=== PATIENT | female | born 1975 | race Caucasian/White ===

== ENCOUNTER → 2018-08-05 | Outpatient (CLI) | payer OTHER ==
--- NOTE | 2018-08-06 07:33 | MM ---
Reason for exam: screening (asymptomatic). Last mammogram was performed 2 years ago. History: Patient has history of other cancer at age 40. Family history of breast cancer in mother at age 65 and breast cancer in maternal sister at age 48. Physical Findings: A clinical breast exam by your physician is recommended on an annual basis and results should be correlated with mammographic findings. MG 3D Screening Mammo W/Cad Bilateral CC and MLO view(s) were taken. Prior study comparison: July 31, 2016, bilateral MG 3d screening mammo w/cad. July 29, 2015, bilateral MG 3d screening mammo w/cad. The breast tissue is heterogeneously dense. This may lower the sensitivity of mammography. No significant changes when compared with prior studies. ASSESSMENT: Benign, BI-RAD 2 RECOMMENDATION: Routine screening mammogram of both breasts in 1 year.
== END | disposition home or self-care (01) ==
LOC: RADMAMWWP 07:04
PROVIDERS: ATTEND Family Medicine
DX: Z12.31 Encounter for screening mammogram for malignant neoplasm of breast (principal)
CPT/HCPCS: 77063; 77067

== ENCOUNTER → 2018-10-31 | Outpatient (CLI) | payer OTHER ==
--- NOTE | 2018-10-31 14:57 | XR ---
EXAMINATION TYPE: XR mastoid complete DATE OF EXAM: 10/31/2018 COMPARISON: NONE HISTORY: Pain TECHNIQUE: 4 views submitted FINDINGS: Osseous structures intact. There is symmetric appearance of the mastoid air cells. IMPRESSION: No plain film x-ray abnormality. Consider follow-up CT scan or MRI given patient's histor y.
== END | disposition home or self-care (01) ==
LOC: RADXRMAIN 14:18
PROVIDERS: ATTEND Family Medicine
DX: R22.0 Localized swelling, mass and lump, head (principal)
CPT/HCPCS: 70130

== ENCOUNTER → 2019-01-01 | Outpatient (CLI) | payer OTHER ==
--- NOTE | 2019-01-01 08:04 | CT ---
EXAMINATION TYPE: CT sinus wo con DATE OF EXAM: 01/01/2019 COMPARISON: None HISTORY: symptoms of chronic sinusitis CT DLP: 618.[address] of the paranasal sinuses was performed in the axial and coronal planes. Bone and soft tissue settings are submitted. Mucous retention cyst right maxillary sinus. Paranasal sinuses are otherwise well aerated. No air-flu id level seen. The osteal meatal units are patent bilaterally. The nasal septum is midline. No bony destructive changes are seen within the field of view. IMPRESSION: Mucous retention cyst right maxillary sinus.
--- NOTE | 2019-01-01 08:12 | CT ---
EXAMINATION TYPE: CT iac wo con DATE OF EXAM: 01/01/2019 COMPARISON: None HISTORY: Right ear/mastoid pain CT DLP: 142.7mGycm Automated exposure control for dose reduction was used. FINDINGS: The external auditory canals are patent bilaterally. Mastoid air cells show no evidence of abnormal opacification bilaterally. The middle ear ossicles are symmetric and unremarkable. There is no evidence of suspicious surrounding soft tissue density to suggest cholesteatoma. The scutum is preserved bilaterally. The cochlea and the semicircular canals are symmetric and unremarkable. Ves tibular aqueduct and internal carotid canal appear unremarkable. Temporomandibular joints are mainta ined bilaterally. Mucous retention cyst right maxillary sinus. IMPRESSION: No significant abnormality seen to account for patient's symptoms.
== END ==
LOC: RADCTMAIN 07:27
PROVIDERS: ATTEND Otolaryngology
DX: J32.9 Chronic sinusitis, unspecified (principal); H92.09 Otalgia, unspecified ear; G50.1 Atypical facial pain; J34.1 Cyst and mucocele of nose and nasal sinus
CPT/HCPCS: 70480; 70486

== ENCOUNTER → 2019-01-18 | Outpatient (CLI) | payer OTHER ==
[2019-01-18 11:21] LABS: Potassium 3.9 mmol/L (3.5-5.1)
== END ==
LOC: LABPAT 10:11
PROVIDERS: ATTEND Otolaryngology
DX: Z01.818 Encounter for other preprocedural examination (principal); E11.9 Type 2 diabetes mellitus without complications
CPT/HCPCS: 36415; 82947; 84132; 84295; 93005

== ENCOUNTER → 2019-09-27 | Outpatient (CLI) | payer OTHER ==
--- NOTE | 2019-09-29 14:31 | MM ---
Reason for exam: screening (asymptomatic). Last mammogram was performed 1 year and 2 months ago. History: Patient has history of other cancer at age 40. Family history of breast cancer in mother at age 65 and breast cancer in maternal sister at age 48. Took progesterone for 1 month. Physical Findings: A clinical breast exam by your physician is recommended on an annual basis and results should be correlated with mammographic findings. MG 3D Screening Mammo W/Cad Bilateral CC and MLO view(s) were taken. Prior study comparison: August 05, 2018, bilateral MG 3d screening mammo w/cad. July 31, 2016, bilateral MG 3d screening mammo w/cad. There are scattered fibroglandular densities. There is no discrete abnormality. No significant changes when compared with prior studies. ASSESSMENT: Negative, BI-RAD 1 RECOMMENDATION: Routine screening mammogram of both breasts in 1 year.
== END | disposition home or self-care (01) ==
LOC: RADMAMWWP 09:41
PROVIDERS: ATTEND Family Medicine
DX: Z12.31 Encounter for screening mammogram for malignant neoplasm of breast (principal)
CPT/HCPCS: 77063; 77067

== ENCOUNTER → 2021-04-15 | Outpatient (CLI) | payer OTHER ==
--- NOTE | 2021-04-18 10:58 | MM ---
Reason for exam: screening (asymptomatic). Last mammogram was performed 1 year and 7 months ago. History: Patient has history of other cancer at age 40. Family history of breast cancer in mother at age 65 and breast cancer in maternal sister at age 48. Took hormonal contraceptives for 10 years. Took progesterone for 1 month. Physical Findings: A clinical breast exam by your physician is recommended on an annual basis and results should be correlated with mammographic findings. MG 3D Screening Mammo W/Cad Bilateral CC and MLO view(s) were taken. Prior study comparison: September 27, 2019, bilateral MG 3d screening mammo w/cad. August 05, 2018, bilateral MG 3d screening mammo w/cad. The breast tissue is heterogeneously dense. This may lower the sensitivity of mammography. There is no discrete abnormality. No significant changes when compared with prior studies. ASSESSMENT: Negative, BI-RAD 1 RECOMMENDATION: Routine screening mammogram of both breasts in 1 year.
== END | disposition home or self-care (01) ==
LOC: RADMAMWWP 07:23
PROVIDERS: ATTEND Family Medicine
DX: Z12.31 Encounter for screening mammogram for malignant neoplasm of breast (principal); Z80.3 Family history of malignant neoplasm of breast
CPT/HCPCS: 77063; 77067

== ENCOUNTER → 2022-03-09 | Outpatient (CLI) | payer OTHER ==
[2022-03-09 14:58] LABS: ALT 95 U/L (8-44); AST 49 U/L (13-35); African American GFR (CKD) 120.5 (60.0-200.0); Albumin 4.4 g/dL (3.8-4.9); Albumin/Globulin Ratio 2.15 (1.60-3.17); Alkaline Phosphatase 93 U/L (41-126); BUN/Creat Ratio 14.18 Ratio (12.00-20.00); Blood Urea Nitrogen 9.7 mg/dL (9.0-27.0); Carbon Dioxide 26.5 mmol/L (20.0-27.5); Chloride 104 mmol/L (96-109); Chol/HDL Ratio 5.54 Ratio; Glucose 128 mg/dL (70-110); LDL Cholesterol,Calculated 97.3 mg/dL (0.0-131.0); Potassium 4.1 mmol/L (3.5-5.5); Sodium 141 mmol/L (135-145); Total Protein 6.4 g/dL (6.2-8.2)
== END | disposition home or self-care (01) ==
LOC: LABWHC1 07:35
PROVIDERS: ATTEND Family Medicine
DX: Z13.220 Encounter for screening for lipoid disorders (principal); E11.9 Type 2 diabetes mellitus without complications; E66.01 Morbid (severe) obesity due to excess calories
CPT/HCPCS: 36415; 80053; 80061; 83036

== ENCOUNTER → 2022-07-05 | Outpatient (CLI) | payer OTHER ==
--- NOTE | 2022-07-06 08:38 | MM ---
Reason for Exam: Screening (asymptomatic). Last mammogram was performed 1 year(s) and 3 month(s) ago. Patient History: Menarche at age 13. Patient has no children. Postmenopausal. Other cancer, age 40. Progesterone for 1 month. Patient used Hormonal Contraceptives for 10 years. Sister had breast cancer, age 48. Mother had breast cancer, age 65. Risk Values: Yessenia 5 year model risk: 2.9%. NCI Lifetime model risk: 26.3%. Prior Study Comparison: 08/05/2018 Bilateral Screening Mammogram, [facility]. 09/27/2019 Bilateral Screening Mammogram, [facility]. 04/15/2021 Bilateral Screening Mammogram, [facility]. Tissue Density: The breast tissue is heterogeneously dense. This may lower the sensitivity of mammography. Findings: Analyzed By CAD. There is no suspicious group of microcalcifications or new suspicious mass in either breast. No significant change from prior exams. Overall Assessment: Negative, BI-RAD 1 Management: Screening Mammogram of both breasts in 1 year. A clinical breast exam by your physician is recommended on an annual basis and results should be correlated with mammographic findings. Electronically signed and approved by: Joshua Skaggs D.O.
== END | disposition home or self-care (01) ==
LOC: RADMAMWWP 07:24
PROVIDERS: ATTEND Family Medicine
DX: Z12.31 Encounter for screening mammogram for malignant neoplasm of breast (principal); Z78.0 Asymptomatic menopausal state; Z80.3 Family history of malignant neoplasm of breast
CPT/HCPCS: 77063; 77067

== ENCOUNTER → 2023-06-05 | Outpatient (CLI) | payer OTHER ==
--- NOTE | 2023-06-05 09:46 | US ---
EXAMINATION TYPE: US abdomen limited DATE OF EXAM: 06/05/2023 COMPARISON: NONE CLINICAL INDICATION: Female, 48 years old with history of R74.01 ELEVATION OF LEVELS OF LIVER TRANSAM INASE L; Abnormal labs. GB removed. TECHNIQUE: Multiple sonographic images of the right upper quadrant are obtained. FINDINGS: EXAM MEASUREMENTS: Liver Length: 21.3 cm CBD: 0.6 cm Right Kidney: 10.1 x 5.4 x 4.6 cm Pancreas: Limited visualization of head and tail due to overlying bowel gas Liver: Enlarged in size. Echogenic in appearance. Coarse. Gallbladder: Surgically absent CBD: wnl Right Kidney: Medial hypoechoic area at hilum = 1.9 x 1.1 cm. Limited visualization of pancreas due to overlying bowel gas. Liver is enlarged with coarsened echoge kacy appearance. No focal lesion identified within these limitations. Gallbladder surgically absent. C ommon bile duct is within normal limits. Right kidney demonstrates no evidence of nephrolithiasis, hy dronephrosis or solid mass. There is a hypoechoic area within the hilum favored to represent a renal pelvis. IMPRESSION: 1. No acute process. 2. Hepatomegaly with fatty infiltration. No focal lesion identified. 3. Postcholecystectomy changes. 4. Hypoechoic area within the right renal hilum favored to represent a renal pelvis. Follow-up renal ultrasound in 6 months is recommended.
== END | disposition home or self-care (01) ==
LOC: RADUSWWP 08:13
PROVIDERS: ATTEND Family Medicine
DX: K76.0 Fatty (change of) liver, not elsewhere classified (principal); R16.0 Hepatomegaly, not elsewhere classified; R74.01 Elevation of levels of liver transaminase levels; Z90.49 Acquired absence of other specified parts of digestive tract
CPT/HCPCS: 76705

== ENCOUNTER → 2023-11-30 | Outpatient (CLI) | payer OTHER | END | disposition home or self-care (01) | LOC: RADUSWWP 06:52 | PROVIDERS: ATTEND Family Medicine | DX: Z53.9 Procedure and treatment not carried out, unspecified reason (principal) ==

== ENCOUNTER → 2023-11-30 | Outpatient (CLI) | payer OTHER ==
--- NOTE | 2023-11-30 07:49 | US ---
EXAMINATION TYPE: US kidneys/renal and bladder DATE OF EXAM: 11/30/2023 COMPARISON: NONE CLINICAL INDICATION: Female, 48 years old with history of R93.429 ABN FINDINGS E11.9 TYPE 2 DIABETES; abnormal finding on prior US, 6 month F/U EXAM MEASUREMENTS: Right Kidney: 11.8x4.8x6.6 cm Left Kidney: 11.9x4.6x5.0 cm Right Kidney: 2.3x2.5x2.0cm area seen on prior believed to be extrarenal pelvis Left Kidney: No hydronephrosis or masses seen Bladder: wnl Bilateral Jets seen: Yes There is no evidence for hydronephrosis at this point in time. No nephrolithiasis is seen. No keon s are identified. The urinary bladder is anechoic. Bilateral ureteral jets are seen. thickened endometrium measures 1.6cm IMPRESSION: 1. 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 2. Thickened endometrium. Correlate with the patient's menstrual cycle.
--- NOTE | 2023-12-03 11:57 | MM ---
Reason for Exam: Screening (asymptomatic). Last mammogram was performed 1 year(s) and 5 month(s) ago. Patient History: Menarche at age 13. Patient has no children. Postmenopausal. Other cancer, age 40. Progesterone for 1 month. Patient used Hormonal Contraceptives for 10 years. Sister had breast cancer, age 48. Mother had breast cancer, age 65. Risk Values: Yessenia 5 year model risk: 3.0%. NCI Lifetime model risk: 26.0%. Prior Study Comparison: 09/27/2019 Bilateral Screening Mammogram, [facility]. 04/15/2021 Bilateral Screening Mammogram, [facility]. 07/05/2022 Bilateral MG 3D screening mammo w/cad, [facility]. Tissue Density: There are scattered areas of fibroglandular density. Findings: Analyzed By CAD. There is no suspicious group of microcalcifications or new suspicious mass in either breast. Asymmetric density upper outer right breast at approximately 10-11 o'clock 5 cm from the nipple. Additional views are recommended. Suspicious calcifications without either breast. Left breast is unremarkable. Overall Assessment: Incomplete: need additional imaging evaluation, BI-RAD 0 Management: Diagnostic Mammogram of the right breast. . Patient should continue monthly self-breast exams. A clinical breast exam by your physician is recommended on an annual basis. This exam should not preclude additional follow-up of suspicious palpable abnormalities. Note on Yessenia scores and lifetime risk: 1. A Yessenia score greater than 3% is considered moderate risk. If this is the case, consider specialist referral to assess eligibility for a risk reducing agent. 2. If overall lifetime risk for the development of breast cancer is 20% or higher, the patient may qualify for future screening with alternating mammogram and breast MRI. Electronically signed and approved by: Chuckie Maloney M.D. Radiologis
== END | disposition home or self-care (01) ==
LOC: RADMAMWWP 06:55
PROVIDERS: ATTEND Family Medicine
DX: Z12.31 Encounter for screening mammogram for malignant neoplasm of breast (principal); R93.89 Abnormal findings on diagnostic imaging of other specified body structures; E11.9 Type 2 diabetes mellitus without complications; Z78.0 Asymptomatic menopausal state; Z80.3 Family history of malignant neoplasm of breast
CPT/HCPCS: 76770; 77063; 77067

== ENCOUNTER → 2023-12-07 | Outpatient (CLI) | payer OTHER ==
--- NOTE | 2023-12-07 10:21 | MM ---
Reason for Exam: Additional evaluation requested from abnormal screening. Last screening mammogram was performed less than 1 month ago. Patient History: Menarche at age 13. Patient has no children. Postmenopausal. Other cancer, age 40. Progesterone for 1 month. Patient used Hormonal Contraceptives for 10 years. Sister had breast cancer, age 48. Mother had breast cancer, age 65. Risk Values: Yessenia 5 year model risk: 2.1%. NCI Lifetime model risk: 19.1%. Prior Study Comparison: 07/31/2016 Bilateral Screening Mammogram, [facility]. 08/05/2018 Bilateral Screening Mammogram, [facility]. 09/27/2019 Bilateral Screening Mammogram, [facility]. 04/15/2021 Bilateral Screening Mammogram, [facility]. 07/05/2022 Bilateral MG 3D screening mammo w/cad, [facility]. 11/30/2023 Bilateral MG 3D screening mammo w/cad, [facility]. Tissue Density: Right: The breasts are heterogeneously dense, which may obscure small masses. Findings: Analyzed By CAD. No persistent mass or distortion. No suspicious calcifications. Overall Assessment: Negative, BI-RAD 1 Management: Screening Mammogram of both breasts in 1 year. . Results were given to the patient verbally at the time of exam. Patient should continue monthly self-breast exams. A clinical breast exam by your physician is recommended on an annual basis. This exam should not preclude additional follow-up of suspicious palpable abnormalities. Note on Yessenia scores and lifetime risk: 1. A Yessenia score greater than 3% is considered moderate risk. If this is the case, consider specialist referral to assess eligibility for a risk reducing agent. 2. If overall lifetime risk for the development of breast cancer is 20% or higher, the patient may qualify for future screening with alternating mammogram and breast MRI. Electronically signed and approved by: Chuckie Maloney M.D. Radiologis
== END | disposition home or self-care (01) ==
LOC: RADMAMWWP 09:40
PROVIDERS: ATTEND Family Medicine
DX: R92.8 Other abnormal and inconclusive findings on diagnostic imaging of breast (principal); Z78.0 Asymptomatic menopausal state; Z80.3 Family history of malignant neoplasm of breast
CPT/HCPCS: 77061; 77065

== ENCOUNTER → 2024-06-12 | Outpatient (CLI) | payer OTHER ==
--- NOTE | 2024-06-12 17:00 | US ---
EXAMINATION TYPE: US transvaginal DATE OF EXAM: 06/12/2024 COMPARISON: NONE CLINICAL INDICATION: Female, 49 years old with history of N92.6 IRREGULAR MENSTRUATION, UNSPECIFIED; irregular periods. LMP was 3 months long from December-March 2024. G0, no pelvic surgeries TECHNIQUE: Transvaginal (TV). FINDINGS: Date of LMP: December-March 2024 EXAM MEASUREMENTS: Uterus: 6.5 x 4.3 x 2.8 cm Endometrial Stripe: 1.3 cm Right Ovary: not seen Left Ovary: 1.4 x 1.4 x 1.1 cm 1. Uterus: Anteverted wnl 2. Endometrium: Hypoechoic area seen in endo measuring 1.7 x 1.9 x 1.4cm 3. Right Ovary: not seen 4. Left Ovary: follicle seen measuring 1.1cm 5. Bilateral Adnexa: wnl 6. Posterior cul-de-sac: wnl Unremarkable anteverted uterus. Heterogenous lesion identified within the endometrium measuring up to 1.9 cm. Endometrium measures up to 1.3 cm in thickness. Right ovary is not visualized due to overlyi ng bowel gas. Left ovary is unremarkable with dominant follicle demonstrated. No free fluid. IMPRESSION: 1. Heterogenous 1.9 cm lesion within the endometrium. Etiologies include submucosal fibroid versus e ndometrial carcinoma versus endometrial polyp. Directed visualization is recommended. 2. Nonvisualization of the right ovary due to overlying bowel gas. [facility], , 06/12/2024 4:58 PM
== END | disposition home or self-care (01) ==
LOC: RADUSWWP 16:15
PROVIDERS: ATTEND Family Medicine
CPT/HCPCS: 76830